=== PATIENT | female | born 1985 | race Caucasian/White ===

== ENCOUNTER 2017-06-12 10:19 | Inpatient (IN) | payer OTHER ==
[2017-06-12 12:50] VITALS: BMI 19.3
--- NOTE | 2017-06-12 16:14 | HP ---
COWS - Scale Resting Pulse: 2= [place] 101-120 Sweatin=Flushed/Facial Moisture Restless Observation: 3= Extraneous Movement Pupil Size: 2= Moderately Dilated Bone or Joint Aches: 2= Severe Diffuse Aches Runny Nose/ Eye Tearin= Runny Nose/Eyes GI Upset > 30mins: 3= Vomiting/Diarrhea Tremor Observation: 2= Slight Tremor Visible Yawning Observation: 2= >3x During Session Anxiety or Irritability: 2=Irritable/Anxious Goose Flesh Skin: 0=Smooth Skin COWS Score: 22 CIWA Score - CIWA Score Nausea/Vomitin Muscle Tremors: 3 Anxiety: 3 Agitation: 3 Paroxysmal Sweats: 2 Orientation: 0-Oriented Tacttile Disturbances: 2-Mild Itch/Numbness/Burn Auditory Disturbances: 2-Mild Harshness/Frighten Visual Disturbances: 2-Mild Sensitivity Headache: 2-Mild CIWA-Ar Total Score: 22 Admission ROS [facility] - HPI Chief Complaint: i need help to stop using drugs and alcohol Allergies/Adverse Reactions: Allergies Allergy/AdvReac Type Severity Reaction Status Date / Time No Known Allergies Allergy Verified 06/12/17 17:11 History of Present Illness: this 31 years old female with multiple drugs dependence and alcohol dependence, seeking detox admissions,last treatment [facility] 2014 syncope nicotine dependence longest period of sobriety 1 and half year anxiet and depression Exam Limitations: No Limitations - Ebola screening Have you traveled outside of the country in the last 21 days: No Have you had contact with anyone from an Ebola affected area: No Have you been sick,other than usual withdrawal symptoms: No Do you have a fever: No - Review of Systems Constitutional: Chills, Diaphoresis, Loss of Appetite, Malaise, Night Sweats, Changes in sleep, Weakness, Unintentional Wgt. Loss EENT: reports: Tearing, Nose Congestion Respiratory: reports: No Symptoms reported Cardiac: reports: Palpitations GI: reports: Diarrhea, Nausea, Vomiting, Abdominal cramping : reports: No Symptoms Reported Musculoskeletal: reports: Back Pain, Joint Pain, Joint Swelling, Muscle Pain Integumentary: reports: Dryness Neuro: reports: Headache, Tremors Endocrine: reports: No Symptoms Reported Hematology: reports: No Symptoms Reported Psychiatric: reports: No Sypmtoms Reported, Judgement Intact, Mood/Affect Appropiate, Anxious, Depressed Patient History - Patient Medical History Hx Anemia: No Hx Asthma: No Hx Chronic Obstructive Pulmonary Disease (COPD): No Hx Cancer: No Hx Cardiac Disorders: No Hx Congestive Heart Failure: No Hx Hypertension: No Hx Hypercholesterolemia: No Hx Pacemaker: No HX Cerebrovascular Accident: No Hx Seizures: No Hx Dementia: No Hx Diabetes: No Hx Gastrointestinal Disorders: No Hx Liver Disease: No Hx Genitourinary Disorders: No Hx Sexually Transmitted Disorders: No Hx Renal Disease (ESRD): No Hx Thyroid Disease: No Hx Human Immunodeficiency Virus (HIV): No (last 12/10 negative) Hx Hepatitis C: No Hx Depression: Yes Hx Suicide Attempt: No Hx Bipolar Disorder: Yes (ON MEDS) Hx Schizophrenia: No Other Medical History: no suicidal,no homical - Patient Surgical History Past Surgical History: Yes Hx Neurologic Surgery: No Hx Cataract Extraction: No Hx Cardiac Surgery: No Hx Lung Surgery: No Hx Breast Surgery: No Hx Breast Biopsy: No Hx Abdominal Surgery: No Hx Appendectomy: No Hx Cholecystectomy: No Hx Genitourinary Surgery: No Hx Section: No Hx Orthopedic Surgery: Yes (right ankle FX 2011) Hx Hysterectomy: No Anesthesia Reaction: No - PPD History Previous Implant?: Yes Documented Results: Negative w/o proof Date: 04/26/16 Results: 0MM PPD to be Administered?: Yes - Reproductive History Patient is a Female of Child Bearing Age (11 -55 yrs old): Yes Last Menstrual Period: 07/05/14 Patient : No - Smoking Cessation Smoking history: Current every day smoker Have you smoked in the past 12 months: Yes Aproximately how many cigarettes per day: 40 Cigars Per Day: 0 Hx Chewing Tobacco Use: No Initiated information on smoking cessation: Yes 'Breaking Loose' booklet given: 06/12/17 - Substance & Tx. History Hx Alcohol Use: Yes Hx Substance Use: Yes Substance Use Type: Alcohol, Cocaine, Heroin, Tranquilizers Hx Substance Use Treatment: Yes (a[facility] 1 and half year ago) - Substances Abused Heroin Route: Inhalation Frequency: Daily Amount used: 10-15 bags Age of first use: 23 Date of Last Use: 06/11/17 Alcohol Route: Oral Frequency: Daily Amount used: 1 liter Age of first use: 18 Date of Last Use: 06/12/17 Alprazolam (Xanax) Route: Oral Frequency: Daily Amount used: 4mg Age of first use: 31 Date of Last Use: 06/10/17 Cocaine Route: Inhalation Frequency: Daily Amount used: $50 Age of first use: 18 Date of Last Use: 06/12/17 PCP Route: Smoking Frequency: 1-3 times last 30 days Amount used: $20 Age of first use: 18 Date of Last Use: 06/10/17 Family Disease History - Family Disease History Family Disease History: Diabetes: Grandparent, Other: Mother (HTN) [facility] - Vital Signs Vital Signs: Vital Signs - 24 hr 06/12/17 12:43 Temperature 97.2 F L Pulse Rate 101 H Respiratory 20 Rate Blood Pressure 115/69 - Physical General Appearance: Yes: Moderate Distress, Tremorous, Irritable, Sweating, Anxious HEENTM: Yes: Normal ENT Inspection, Normocephalic, KEYANNA, Pharynx Normal Respiratory: Yes: Lungs Clear, Normal Breath Sounds, No Respiratory Distress Neck: Yes: Within Normal Limits, Supple, Trachea in good position Breast: Yes: Within Normal Limits Cardiology: Yes: Within Normal Limits, Regular Rhythm, Regular Rate, S1, S2 Abdominal: Yes: Within Normal Limits, Normal Bowel Sounds, Non Tender, Flat, Soft Genitourinary: Yes: Within Normal Limits Back: Yes: Muscle Spasm Musculoskeletal: Yes: full range of Motion, Back pain, Muscle Pain Extremities: Yes: Normal Capillary Refill, Normal Range of Motion, Tremors 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, Fully Oriented, Alert, Motor Strength 5/5 Integumentary: Yes: Dry Lymphatic: Yes: Within Normal Limits - Diagnostic (1) Alcohol dependence with uncomplicated withdrawal Current Visit: Yes Status: Acute (2) Anxiety and depression Current Visit: No Status: Chronic (3) Cannabis dependence, uncomplicated Current Visit: Yes Status: Acute (4) Opioid dependence with withdrawal Current Visit: Yes Status: Acute (5) Sedative, hypnotic, or anxiolytic withdrawal Current Visit: Yes Status: Acute (6) Weight loss Current Visit: Yes Status: Acute (7) Cocaine dependence, uncomplicated Current Visit: Yes Status: Acute Cleared for Admission [facility] - Detox or Rehab [facility] Level of Care: Medically Managed Detox Regimen/Protocol: Methadone/Valium [facility] Breath Alcohol Content Breath Alcohol Content: 0 Urine Pregancy Test - Result Urine Test Results: Negative- NO Line Present Urine Drug Screen - Results Drug Screen Negative: No Urine Drug Screen Results: THC-Marijuana, ABHIJIT-Cocaine, OPI-Opiates, PCP- Phencyclidine, MTD-Methadone, OXY-Oxycodone
[2017-06-12] MEDS ORDERED: diphenhydrAMINE HCL 50 MG CAPSULE PO PRN (17:33)
[2017-06-12] MEDS ORDERED: hydrOXYzine PAMOATE 25 MG CAPSULE (FP) PO PRN (17:33)
[2017-06-12] MEDS ORDERED: guaiFENesin/D-METHORPHAN HB 10 ML UNIT-DOSE CUPS PO PRN (17:33)
[2017-06-12] MEDS ORDERED: MAG HYDROX/AL HYDROX/SIMETH 30 ML UNIT-DOSE CUP PO PRN (17:33)
[2017-06-12] MEDS ORDERED: MENTHOL/PHENOL 1 EACH UD MM PRN (17:33)
[2017-06-12] MEDS ORDERED: P-EPHED 60MG/TRIPROLIDI 2.5MG TABLET PO PRN (17:33)
[2017-06-12] MEDS ORDERED: MAGNESIUM CITRATE 300 ML BOTTLE PO PRN (17:33)
[2017-06-12] MEDS ORDERED: MAGNESIUM HYDROX 2400MG/30ML ORAL SUSPENSION 30 ML CUP PO PRN (17:33)
[2017-06-12] MEDS ORDERED: ACETAMINOPHEN 325 MG TABLET (FP) PO PRN (17:33)
[2017-06-12] MEDS ORDERED: IBUPROFEN 400 MG TABLET (FP) PO PRN (17:33)
[2017-06-12] MEDS ORDERED: LOPERAMIDE HCL 2 MG CAPSULE PO PRN (17:33)
[2017-06-12] MEDS: NICOTINE 21 MG/24 HOURS TOPICAL PATCH TD SCH (18:19)
[2017-06-12] MEDS ORDERED: diazePAM 5 MG TABLET PO ONE (18:30)
[2017-06-12] MEDS ORDERED: METHADONE HCL 10 MG TABLET (FOR DETOX USE ONLY) PO ONE ×2 (18:30→23:00)
[2017-06-12 21:04] LABS: URINE APPEARANCE CLOUDY; URINE BILIRUBIN NEGATIVE (NEGATIVE); URINE BLOOD 1+ (NEGATIVE); URINE COLOR AMBER; URINE GLUCOSE (UA) NEGATIVE (NEGATIVE); URINE KETONE TRACE (NEGATIVE); URINE NITRITE POSITIVE (NEGATIVE); URINE UROBILINOGEN NEGATIVE mg/dL (0.2-1.0)
[2017-06-12 21:09] LABS: URINE LEUK ESTERASE 1+ (NEGATIVE); URINE PROTEIN 2+ (NEGATIVE)
[2017-06-12 22:17] LABS: CALCIUM OXALATE CRYSTALS RARE /hpf (NONE SEEN); URINE MUCUS MANY; URINE RBC 14 /hpf (0-3); URINE WBC 214 /hpf (3-5)
[2017-06-12] MEDS: CYCLOBENZAPRINE HCL 10 MG TABLET (FP) PO PRN (22:48)
[2017-06-12] MEDS: THIAMINE HCL 100 MG TABLET (FP) PO SCH (22:48)
[2017-06-12] MEDS: cloNIDine HCL 0.1 MG TABLET PO SCH (22:48)
[2017-06-12] MEDS: diazePAM 5 MG TABLET PO SCH (22:49)
[2017-06-13] MEDS: diazePAM 5 MG TABLET PO SCH ×3 (06:09→22:45)
[2017-06-13] MEDS ORDERED: METHADONE HCL 10 MG TABLET (FOR DETOX USE ONLY) PO SCH (10:00)
--- NOTE | 2017-06-13 10:23 | EKG ---
Test Reason : Blood Pressure : / mmHG Vent. Rate : 085 BPM Atrial Rate : 085 BPM P-R Int : 132 ms QRS Dur : 102 ms QT Int : 372 ms P-R-T Axes : 018 078 044 degrees QTc Int : 442 ms NORMAL SINUS RHYTHM NORMAL ECG NO PREVIOUS ECGS AVAILABLE Confirmed by MD SHILOH, CRISTIANO ([id number]) on 06/13/2017 10:23:16 AM Referred By: Confirmed By:CRISTIANO MATAMOROS MD
[2017-06-13 10:26] LABS: MCH 27.3 pg (25.7-33.7); MCHC 33.1 g/dl (32.0-36.0); MEAN CELL VOLUME 82.2 fl (80-96); MEAN PLT VOLUME 8.6 fl (7.5-11.1); PLATELET COUNT 215 K/MM3 (134-434); RDW 15.2 % (11.6-15.6); WHITE BLOOD COUNT 10.1 K/mm3 (4.0-10.0)
[2017-06-13 10:55] LABS: ALBUMIN 3.1 g/dl (3.4-5.0); ALK PHOS 77 U/L (45-117); ANION GAP 7 (8-16); BILIRUBIN,TOTAL 0.5 mg/dL (0.2-1.0); CALCIUM 8.4 mg/dL (8.5-10.1); CO2 30 mmol/L (21-32); CREATININE 0.6 mg/dL (0.55-1.02); GLUCOSE,RANDOM 84 mg/dL (74-106); SGOT/AST 13 U/L (15-37); SGPT/ALT 16 U/L (12-78); TOT PROT 6.8 g/dl (6.4-8.2)
[2017-06-13] MEDS: PRENATAL VITAMINS W/ FOLIC ACID TABLET (FP) PO SCH (11:07)
[2017-06-13] MEDS: CYCLOBENZAPRINE HCL 10 MG TABLET (FP) PO PRN ×2 (11:07→22:45)
[2017-06-13] MEDS: cloNIDine HCL 0.1 MG TABLET PO SCH ×2 (11:07→22:45)
[2017-06-13] MEDS: NICOTINE 21 MG/24 HOURS TOPICAL PATCH TD SCH (11:07)
[2017-06-13] MEDS: NICOTINE POLACRILEX 2 MG GUM BC PRN (11:11)
--- NOTE | 2017-06-13 12:18 | PN ---
S Progress Note (SOAP) Objective: 06/13/17 12:17 Vital Signs Temperature 99.3 F 06/13/17 10:00 Pulse Rate 76 06/13/17 10:00 Respiratory Rate 20 06/13/17 10:00 Blood Pressure 104/63 06/13/17 10:00 O2 Sat by Pulse Oximetry (%) Laboratory Tests 06/12/17 06/13/17 06/13/17 18:15 06:30 06:30 WBC 10.1 H D RBC 4.33 Hgb 11.8 Hct 35.6 MCV 82.2 MCH 27.3 MCHC 33.1 RDW 15.2 Plt Count 215 MPV 8.6 Sodium 139 Potassium 3.6 Chloride 102 Carbon Dioxide 30 Anion Gap 7 L BUN 9 D Creatinine 0.6 Creat Clearance w eGFR > 60 Random Glucose 84 D Calcium 8.4 L Total Bilirubin 0.5 D AST 13 L D ALT 16 Alkaline Phosphatase 77 Total Protein 6.8 Albumin 3.1 L Urine Color Annamarie Urine Appearance Cloudy Urine pH 5.0 Ur Specific [place] >= 1.030 H Urine Protein 2+ H Urine Glucose (UA) Negative Urine Ketones Trace H Urine Blood 1+ H Urine Nitrite Positive Urine Bilirubin Negative Urine Urobilinogen Negative Ur Leukocyte Esterase 1+ H Urine RBC 14 Urine WBC 214 Ur Epithelial Cells Few Calcium Oxalate Crystal Rare Urine Mucus Many Assessment: 06/13/17 12:17 withdrawal sx's abnormal u/a -increase wbc's Plan: cont. detox increase fluids u/a u/cx
[2017-06-13 14:45] LABS: HIV 1 & 2 AB NEGATIVE; HIV 1 AGp24 NEGATIVE
--- NOTE | 2017-06-13 19:04 | CONSULT ---
[facility] Psychiatric Consult - Data Date of interview: 06/13/17 Admission source: [facility] Identifying data: Readmission to [facility] for this 31 y/o female seeking detox treatment on for alcohol,xanax,cocaine and heroin dependence.Patient is single without children,domiciled,unemployed and supported by friends. Substance Abuse History: Patient reports that she abuses " everything that she put hands on." Ms Henriquez endorses dependence on phencyclidine,cocaine,xanax, heroin,cannabis and alcohol.She smokes tho packs of cigarettes daily.Onset of substance abuse at age 18.History of previous failed detox/rehab treatments. Medical History: Patient endorses good general health. Psychiatric History: Patient denies history of psychiatric hospitalizations.She was briefly followed at [facility] and maintained on seroquel and remeron.Has been lost to follow up for several months.Ms Henriquez reports chronic insomnia and wishes to get back on " a low dose " of seroquel in view of a history of good response/tolerability.Denies history of suicide attempts. Physical/Sexual Abuse/Trauma History: Patient denies. Additional Comment: Urine Drug Screen Results: THC-Marijuana, ABHIJIT-Cocaine, OPI- Opiates, PCP-Phencyclidine, MTD-Methadone, OXY-Oxycodone.Noted. Mental Status Exam - Mental Status Exam Alert and Oriented to: Time, Place, Person Cognitive Function: Good Patient Appearance: Unkempt, Disheveled (thin habitus) Mood: Nervous, Withdrawn Affect: Normal Range Patient Behavior: Fatigued, Cooperative Speech Pattern: Clear Voice Loudness: Normal Thought Process: Goal Oriented Thought Disorder: Not Present Hallucinations: Denies Suicidal Ideation: Denies Homicidal Ideation: Denies Insight/Judgement: Poor Sleep: Poorly, Difficulty falling asleep Appetite: Fair, Weight loss Muscle strength/Tone: Normal Gait/Station: Normal Psychiatric Findings - Problem List ([place] 1, 2,3) (1) Alcohol dependence with uncomplicated withdrawal Current Visit: Yes Status: Acute (2) Cannabis dependence, uncomplicated Current Visit: Yes Status: Acute (3) Cocaine dependence, uncomplicated Current Visit: Yes Status: Acute (4) Nicotine dependence, uncomplicated Current Visit: Yes Status: Acute Qualifiers: Nicotine product type: cigarettes Qualified Code(s): F17.210 - Nicotine dependence, cigarettes, uncomplicated (5) Opioid dependence with withdrawal Current Visit: Yes Status: Acute (6) Sedative, hypnotic, or anxiolytic withdrawal Current Visit: Yes Status: Acute (7) PCP abuse Current Visit: Yes Status: Acute (8) Drug-induced mood disorder Current Visit: Yes Status: Acute (9) Insomnia Current Visit: Yes Status: Acute - Initial Treatment Plan Initial Treatment Plan: Psychoeducation.Detoxification.Seroquel 50 mg po hs.SSide effects/benefits discussed with patient.She agrees to take this medication.Previous records were reviewed.Observation.
[2017-06-13 22:40] LABS: URINE APPEARANCE TURBID; URINE BILIRUBIN NEGATIVE (NEGATIVE); URINE BLOOD NEGATIVE (NEGATIVE); URINE COLOR DKYELLOW; URINE GLUCOSE (UA) NEGATIVE (NEGATIVE); URINE KETONE TRACE (NEGATIVE); URINE NITRITE NEGATIVE (NEGATIVE)
[2017-06-13] MEDS: QUEtiapine FUMARATE 50 MG TABLET PO SCH (22:45)
[2017-06-13] MEDS: THIAMINE HCL 100 MG TABLET (FP) PO SCH (22:45)
[2017-06-13 22:47] LABS: URINE LEUK ESTERASE 2+ (NEGATIVE); URINE PROTEIN 2+ (NEGATIVE)
[2017-06-13 23:01] LABS: URINE MUCUS MANY; URINE WBC 282 /hpf (3-5)
[2017-06-14] MEDS: diazePAM 5 MG TABLET PO PRN (08:42)
[2017-06-14] MEDS: cloNIDine HCL 0.1 MG TABLET PO SCH ×2 (10:58→22:51)
[2017-06-14] MEDS: PRENATAL VITAMINS W/ FOLIC ACID TABLET (FP) PO SCH (10:58)
[2017-06-14] MEDS: CYCLOBENZAPRINE HCL 10 MG TABLET (FP) PO PRN ×2 (10:58→22:51)
[2017-06-14] MEDS: NICOTINE POLACRILEX 2 MG GUM BC PRN (10:59)
[2017-06-14] MEDS: METHADONE HCL 5 MG TABLET (FOR DETOX USE ONLY) PO SCH (10:59)
[2017-06-14] MEDS: diazePAM 5 MG TABLET PO SCH ×2 (10:59→22:51)
[2017-06-14] MEDS: NICOTINE 21 MG/24 HOURS TOPICAL PATCH TD SCH (10:59)
--- NOTE | 2017-06-14 15:52 | PN ---
[facility] CIWA - CIWA Score Nausea/Vomitin Muscle Tremors: 3 Anxiety: 3 Agitation: 3 Paroxysmal Sweats: 1-Minimal Palms Moist Orientation: 0-Oriented Tacttile Disturbances: 1-Very Mild Itch/Numbness Auditory Disturbances: 1-Very Mild Visual Disturbances: 1-Very Mild Sensitivity Headache: 2-Mild CIWA-Ar Total Score: 18 [facility] COWS - Scale Resting Pulse: 1= [place] 81-100 Sweatin= Chills/Flushing Restless Observation: 3= Extraneous Movement Pupil Size: 1= Pupils >than Normal Bone or Joint Aches: 2= Severe Diffuse Aches Runny Nose/ Eye Tearin= Runny Nose/Eyes GI Upset > 30mins: 2= Nausea/Diarrhea Tremor Observation of Outstretched Hands: 2= Slight Tremor Visible Yawning Observation: 2= >3x During Session Anxiety or Irritability: 2=Irritable/Anxious Goose Flesh Skin: 0=Smooth Skin COWS Score: 18 [facility] Progress Note (SOAP) Subjective: alert,irritable,anxious,interrupted sleep,tremor,pain in the body and back Objective: 06/14/17 15:47 Vital Signs Temperature 99.5 F 06/14/17 14:41 Pulse Rate 81 06/14/17 14:41 Respiratory Rate 20 06/14/17 14:41 Blood Pressure 99/61 06/14/17 14:41 O2 Sat by Pulse Oximetry (%) ekg nsr,normal ecg Laboratory Last Values WBC 10.1 K/mm3 (4.0-10.0) H D 06/13/17 06:30 RBC 4.33 M/mm3 (3.60-5.2) 06/13/17 06:30 Hgb 11.8 GM/dL (10.7-15.3) 06/13/17 06:30 Hct 35.6 % (32.4-45.2) 06/13/17 06:30 MCV 82.2 fl (80-96) 06/13/17 06:30 MCH 27.3 pg (25.7-33.7) 06/13/17 06:30 MCHC 33.1 g/dl (32.0-36.0) 06/13/17 06:30 RDW 15.2 % (11.6-15.6) 06/13/17 06:30 Plt Count 215 K/MM3 (134-434) 06/13/17 06:30 MPV 8.6 fl (7.5-11.1) 06/13/17 06:30 Sodium 139 mmol/L (136-145) 06/13/17 06:30 Potassium 3.6 mmol/L (3.5-5.1) 06/13/17 06:30 Chloride 102 mmol/L (98-107) 06/13/17 06:30 Carbon Dioxide 30 mmol/L (21-32) 06/13/17 06:30 Anion Gap 7 (8-16) L 06/13/17 06:30 BUN 9 mg/dL (7-18) D 06/13/17 06:30 Creatinine 0.6 mg/dL (0.55-1.02) 06/13/17 06:30 Creat Clearance w eGFR > 60 (>60) 06/13/17 06:30 Random Glucose 84 mg/dL (74-106) D 06/13/17 06:30 Calcium 8.4 mg/dL (8.5-10.1) L 06/13/17 06:30 Total Bilirubin 0.5 mg/dL (0.2-1.0) D 06/13/17 06:30 AST 13 U/L (15-37) L D 06/13/17 06:30 ALT 16 U/L (12-78) 06/13/17 06:30 Alkaline Phosphatase 77 U/L (45-117) 06/13/17 06:30 Total Protein 6.8 g/dl (6.4-8.2) 06/13/17 06:30 Albumin 3.1 g/dl (3.4-5.0) L 06/13/17 06:30 Urine Color Dkyellow 06/13/17 Unknown Urine Appearance Turbid 06/13/17 Unknown Urine pH 7.0 (5.0-8.0) D 06/13/17 Unknown Ur Specific [place] 1.020 (1.005-1.025) 06/13/17 Unknown Urine Protein 2+ (NEGATIVE) H 06/13/17 Unknown Urine Glucose (UA) Negative (NEGATIVE) 06/13/17 Unknown Urine Ketones Trace (NEGATIVE) H 06/13/17 Unknown Urine Blood Negative (NEGATIVE) 06/13/17 Unknown Urine Nitrite Negative (NEGATIVE) 06/13/17 Unknown Urine Bilirubin Negative (NEGATIVE) 06/13/17 Unknown Urine Urobilinogen 2.0 mg/dL (0.2-1.0) H 06/13/17 Unknown Ur Leukocyte Esterase 2+ (NEGATIVE) H 06/13/17 Unknown Urine RBC None /hpf (0-3) 06/13/17 Unknown Urine WBC 282 /hpf (3-5) 06/13/17 Unknown Ur Epithelial Cells Rare /hpf (FEW) 06/13/17 Unknown Calcium Oxalate Crystal Rare /hpf (NONE SEEN) 06/12/17 18:15 Urine Mucus Many 06/13/17 Unknown RPR Titer Nonreactive (NONREACTIVE) 06/13/17 06:30 HIV 1&2 Antibody Screen Negative 06/13/17 06:30 HIV P24 Antigen Negative 06/13/17 06:30 Assessment: 06/14/17 15:51 withdrawal symptom Plan: continue detox,urine for c/s r/o uti,bactrim ds 1 tab po bid
[2017-06-14] MEDS: THIAMINE HCL 100 MG TABLET (FP) PO SCH (22:51)
[2017-06-14] MEDS: QUEtiapine FUMARATE 50 MG TABLET PO SCH (22:51)
[2017-06-14] MEDS: SULFAMETHOXAZOLE/TRIMETHOPRIM 800MG/160MG D.S. TABLET PO SCH (22:51)
[2017-06-15] MEDS: NICOTINE POLACRILEX 2 MG GUM BC PRN (06:06)
[2017-06-15] MEDS: diazePAM 5 MG TABLET PO PRN (06:06)
[2017-06-15] MEDS: diazePAM 5 MG TABLET PO SCH ×2 (10:42→22:24)
[2017-06-15] MEDS: cloNIDine HCL 0.1 MG TABLET PO SCH ×2 (10:42→22:24)
[2017-06-15] MEDS: PRENATAL VITAMINS W/ FOLIC ACID TABLET (FP) PO SCH (10:42)
[2017-06-15] MEDS: CYCLOBENZAPRINE HCL 10 MG TABLET (FP) PO PRN (10:42)
[2017-06-15] MEDS: METHADONE HCL 5 MG TABLET (FOR DETOX USE ONLY) PO SCH (10:43)
[2017-06-15] MEDS: NICOTINE 21 MG/24 HOURS TOPICAL PATCH TD SCH (10:43)
[2017-06-15] MEDS: SULFAMETHOXAZOLE/TRIMETHOPRIM 800MG/160MG D.S. TABLET PO SCH ×2 (10:50→22:24)
--- NOTE | 2017-06-15 12:12 | PN ---
[facility] Progress Note (SOAP) Subjective: ALERT,IRRITABLE,ANXIOUS,INTERRUPTED SLEEP,TREMOR,PAIN IN THE BODY Objective: 06/15/17 12:10 Vital Signs Temperature 98.1 F 06/15/17 10:00 Pulse Rate 82 06/15/17 10:00 Respiratory Rate 16 06/15/17 10:00 Blood Pressure 98/56 06/15/17 10:00 O2 Sat by Pulse Oximetry (%) Assessment: 06/15/17 12:11 WITHDRAWAL SYMPTOM Plan: CONTINUE DETOX,URINE FOR C/S PENDING
[2017-06-15] MEDS: QUEtiapine FUMARATE 50 MG TABLET PO SCH (22:24)
[2017-06-15] MEDS: THIAMINE HCL 100 MG TABLET (FP) PO SCH (22:25)
[2017-06-16] MEDS ORDERED: diazePAM 5 MG TABLET PO SCH (10:00)
[2017-06-16] MEDS ORDERED: METHADONE HCL 10 MG TABLET (FOR DETOX USE ONLY) PO SCH (10:00)
[2017-06-16 10:14] VITALS: BP 98/56; PULSE 86; TEMP 97.7
--- NOTE | 2017-06-16 10:18 | PN ---
[facility] Progress Note Note: pt refused to complete detox; pt states I want to go home. pt signed out AMA.
--- NOTE | 2017-06-16 10:22 | DS ---
[facility] Detox Discharge Summary Admission Date: 06/12/17 Discharge Date: 06/16/17 (pt wants to go home) - History Present History: Alcohol Dependence, Cannabis Dependence, Cocaine Dependence, Opioid Dependence - Physical Exam Results Vital Signs: Vital Signs Temperature 97.7 F 06/16/17 10:00 Pulse Rate 86 06/16/17 10:00 Respiratory Rate 16 06/16/17 10:00 Blood Pressure 98/56 06/16/17 10:00 O2 Sat by Pulse Oximetry (%) - Treatment Hospital Course: Discharged Condition Good - Medication Discharge Medications: Ambulatory Orders Quetiapine Fumarate [Seroquel -] 50 mg PO HS #30 tablet 06/13/17 - Diagnosis (1) Alcohol dependence with uncomplicated withdrawal Current Visit: Yes Status: Chronic (2) Cannabis dependence, uncomplicated Current Visit: Yes Status: Chronic (3) Cocaine dependence, uncomplicated Current Visit: Yes Status: Chronic (4) Drug-induced mood disorder Current Visit: Yes Status: Acute (5) Insomnia Current Visit: Yes Status: Acute (6) Nicotine dependence, uncomplicated Current Visit: Yes Status: Chronic Qualifiers: Nicotine product type: cigarettes Qualified Code(s): F17.210 - Nicotine dependence, cigarettes, uncomplicated (7) Opioid dependence with withdrawal Current Visit: Yes Status: Chronic (8) PCP abuse Current Visit: Yes Status: Chronic (9) Sedative, hypnotic, or anxiolytic withdrawal Current Visit: Yes Status: Chronic (10) UTI (urinary tract infection) Current Visit: Yes Status: Acute (11) Weight loss Current Visit: Yes Status: Acute (12) Abscess of labia majora Current Visit: No Status: Acute (13) Mood disorder Current Visit: No Status: Acute (14) Substance-induced anxiety disorder Current Visit: No Status: Acute (15) Anxiety and depression Current Visit: No Status: Chronic (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
[2017-06-16] MEDS: SULFAMETHOXAZOLE/TRIMETHOPRIM 800MG/160MG D.S. TABLET PO SCH (10:39)
[2017-06-17] MEDS ORDERED: METHADONE HCL 5 MG TABLET (FOR DETOX USE ONLY) PO SCH (06:00)
== END 2017-06-16 10:56 | disposition left against medical advice (07) | DRG 770 ==
LOC: YASAS 10:19 → Y6N 17:52
PROVIDERS: ADMIT Internal Medicine Addiction Medicine; ATTEND Internal Medicine Addiction Medicine
PROC: HZ2ZZZZ Detoxification Services for Substance Abuse Treatment (ICD-10-PCS; principal; 2017-06-12)
DX: F11.23 Opioid dependence with withdrawal (principal); F13.230 Sedative, hypnotic or anxiolytic dependence with withdrawal, uncomplicated; F10.230 Alcohol dependence with withdrawal, uncomplicated; F14.20 Cocaine dependence, uncomplicated; F12.20 Cannabis dependence, uncomplicated; F16.10 Hallucinogen abuse, uncomplicated; F17.210 Nicotine dependence, cigarettes, uncomplicated; F19.24 Other psychoactive substance dependence with psychoactive substance-induced mood disorder; F41.8 Other specified anxiety disorders; F39 Unspecified mood [affective] disorder; F19.280 Other psychoactive substance dependence with psychoactive substance-induced anxiety disorder; F19.282 Other psychoactive substance dependence with psychoactive substance-induced sleep disorder; F31.9 Bipolar disorder, unspecified; G47.00 Insomnia, unspecified; N39.0 Urinary tract infection, site not specified; N76.4 Abscess of vulva; Z87.898 Personal history of other specified conditions
CPT/HCPCS: 36415; 80053; 81003; 81015; 85027; 86593; 87389; 93005; 93010